=== PATIENT | male | born 1960 | race Caucasian/White ===

== ENCOUNTER 2024-04-13 13:59 | Emergency (ER) | payer BC, SELFPAY ==
--- NOTE | ~2024-04-13 | XR_ITS ---
XR chest 2V Ordering provider: SANTOS Read History: 64 years Male with . cough, SOB x1 wk. Hx asthma . Comparison: None. FINDINGS: MEDIASTINUM: The cardiac silhouette is not enlarged. Slightly congestive la. LUNGS: No infiltrates, effusions or pneumothorax. OTHER: No free air under the diaphragm. IMPRESSION: No acute cardiopulmonary pathology. Reviewed, dictated and finalized at location A.
[2024-04-13 14:11] VITALS: BP 121/74; PULSE 86; RESP 20; TEMP 36.8; O2SAT 98
--- NOTE | 2024-04-13 15:08 | ED.URI ---
HPI - URI/Sore Throat General Chief Complaint: Upper Respiratory Infection Stated Complaint: Trouble Breathing,Chest Pain,Drainage Time Seen by Provider: 04/13/24 15:03 Source: patient and RN notes reviewed Mode of arrival: ambulatory Limitations: no limitations History of Present Illness HPI Narrative: Patient presents today complaining of one-week history of productive cough, nasal congestion, postnasal drip. Reports postnasal drainage and nasal congestion worsened over the past 3 days and shortness of breath developed 2 days ago and has been worsening since onset. History of asthma. He has been using his albuterol nebulizer and inhaler frequently the past 2 days. He has also been using DayQuil and [place] Plus with some mild relief. Related Data Home Medications Medication Instructions Recorded Confirmed albuterol sulfate 90 mcg/actuation 2 inh inhalation DIRECTED 04/13/24 04/13/24 aerosol inhaler atorvastatin 10 mg tablet 10 mg PO DAILY 04/13/24 04/13/24 diltiazem HCl 240 mg capsule,24 240 mg PO DAILY 04/13/24 04/13/24 hr,extended release hydrochlorothiazide 25 mg tablet 25 mg PO DAILY 04/13/24 04/13/24 meloxicam 7.5 mg tablet 7.5 mg PO DAILY 04/13/24 04/13/24 mometasone-formoterol HFA 100 2 inh inhalation DIRECTED 04/13/24 04/13/24 mcg-5 mcg/actuation aerosol inhaler (Dulera) Allergies Allergy/AdvReac Type Severity Reaction Status Date / Time Penicillins Allergy Unknown reaction Verified 04/13/24 14:43 Review of Systems Review of Systems: CONSTITUTIONAL: Denies body aches, fever, chills, or sweats. EYES: Denies visual changes, redness, or discharge. ENT: Denies rhinorrhea, sore throat, or otalgia.+ congestion, postnasal drip CARDIOVASCULAR: Denies chest pain, palpitations, or edema. RESPIRATORY: + cough, shortness of breath, wheezing GASTROINTESTINAL: Denies abdominal pain, nausea, vomiting, or diarrhea. GENITOURINARY: Denies dysuria or hematuria. SKIN: Denies rash, itching, or wounds. MUSCULOSKELETAL: Denies back pain, joint pain, or myalgia. NEUROLOGIC: Denies headache, numbness, tingling, or weakness. PSYCH: Denies depression or anxiety. [facility] Past Medical History Medical History (Updated 04/13/24 @ 15:33 by Moira Justice, [employer], ) Asthma Hypertension Comments At time of signature, I have reviewed and agree with nursing past medical, surgical, social and family history unless otherwise noted. Please see nursing chart for further information. There is no relevant family history pertinent to the presenting complaint Exam Narrative: GENERAL: Acute on chronically ill-appearing, well-nourished. HEAD: Normocephalic, atraumatic. EYES: EOMI. No redness or drainage. Conjunctivae normal. ENT: Mucous membranes pink and moist. Nares congested. No rhinorrhea. TMs normal bilaterally. Throat normal. Uvula midline. NECK: Normal AROM. Supple. No lymphadenopathy. CHEST: No respiratory distress. Clear to auscultation. Frequent cough HEART: Regular rate and rhythm. No murmur appreciated. EXTREMITIES: Normal range of motion. No edema. SKIN: Warm, dry, no rash. Capillary refill normal. Normal skin turgor. NEURO: No focal deficits. Alert and oriented x3. Gait steady. PSYCH: Normal affect. No signs of depression or anxiety. Course Course Level of Care: Express Care Visit Vital Signs Vital signs: Vital Signs Temperature 98.3 F 04/13/24 14:11 Pulse Rate 86 04/13/24 14:11 Respiratory Rate 04/13/24 14:11 Blood Pressure 121/74 04/13/24 14:11 Pulse Oximetry 98 04/13/24 14:11 Temperature 98.3 F 04/13/24 14:11 Pulse Rate 86 04/13/24 14:11 Respiratory Rate 04/13/24 14:11 Blood Pressure 121/74 04/13/24 14:11 Pulse Oximetry 98 04/13/24 14:11 Reviewed MDM - URI/Sore Throat MDM Narrative Medical decision making narrative: X-ray is negative for pneumonia. Prescription for prednisone Differential Diagnosis Differential d
== END 2024-04-13 15:42 | disposition home or self-care (01) ==
PROVIDERS: Emergency Provider Nurse Practitioner; PCP Family Medicine
DX: J06.9 Acute upper respiratory infection, unspecified (principal); J45.901 Unspecified asthma with (acute) exacerbation; I10 Essential (primary) hypertension
CPT/HCPCS: 71046; 99213; G0463